=== PATIENT | male | born 1945 | race Caucasian/White ===

== ENCOUNTER → 2024-03-05 10:31 | Outpatient (REF) | payer MEDICARE, OTHER, SELFPAY ==
[2024-03-05 12:04] LABS: % Eosinophils 4.2 % (0-6); % Immature Granulocytes 0.3 % (0-0.5); % Lymphocytes 36.7 % (20.5-51.1); % Monocytes 10.4 % (1.7-9.3); % Neutrophils 48.4 % (42.2-75.2); Absolute Eosinophils 0.2 10^3/uL (0-0.7); Absolute Lymphocytes 1.3 10^3/uL (1.2-3.4); Absolute Monocytes 0.4 10^3/uL (0.1-0.6); Absolute Neutrophils 1.7 10^3/uL (1.4-6.5); Hematocrit 37.8 % (39.0-52.0); Hemoglobin 13.3 g/dL (13.0-18.0); Mean Corp Hgb Conc. 35.2 g/dL (33.0-37.0); Mean Corpuscular Hgb 32.6 pg (27.0-31.0); Mean Corpuscular Volume 92.6 fL (80.0-94.0); Mean Platelet Volume 12.1 fL (7.4-10.4); Nucleated Red Blood Cells % 0 % (-); Platelet Count 130 10^3/uL (130-400); Red Blood Cell Count 4.08 10^6/uL (4.70-6.10); Red Cell Dist. Width 12.5 % (11.5-14.5); White Blood Cell Count 3.6 10^3/uL (4.8-10.8)
[2024-03-05 13:36] LABS: ALT (SGPT) 19 U/L (0-50); AST (SGOT) 24 U/L (17-59); Albumin 4.2 g/dl (3.5-5.0); Alkaline Phosphatase 53 U/L (38-126); Blood Urea Nitrogen 15 mg/dl (9-20); Calcium 8.8 mg/dl (8.4-10.2); Carbon Dioxide 26 mmol/L (22-30); Chloride 104 mmol/L (98-107); Glucose 96 mg/dl (70-99); HDL Cholesterol 52 mg/dl; LDL Cholesterol, Calculated 112 mg/dl; Potassium 4.4 mmol/L (3.5-5.1); Sodium 134 mmol/L (135-145); Total Bilirubin 0.8 mg/dl (0.2-1.3); Total Cholesterol 179 mg/dl (50-199); Total Protein 6.6 g/dl (6.3-8.2); Triglyceride 75 mg/dl (10-149); Very Low Density Lipoprotein 15 mg/dl (0-30); eGFR > 60.00
[2024-03-05 13:55] LABS: Glycohemoglobin (HgbA1c) 5.2 % (4.0-5.6)
== END ==
LOC: REG 10:31
PROVIDERS: ATTENDING PHYSICIAN Family Medicine
DX: H40.023 Open angle with borderline findings, high risk, bilateral (principal); I10 Essential (primary) hypertension; E78.00 Pure hypercholesterolemia, unspecified; G47.30 Sleep apnea, unspecified; Z86.73 Personal history of transient ischemic attack (TIA), and cerebral infarction without residual deficits; M75.111 Incomplete rotator cuff tear or rupture of right shoulder, not specified as traumatic; E74.39 Other disorders of intestinal carbohydrate absorption; R73.09 Other abnormal glucose
CPT/HCPCS: 36415; 80053; 80061; 83036; 85025

== ENCOUNTER → 2024-04-08 11:18 | Outpatient (REF) | payer MEDICARE, OTHER, SELFPAY | LOC: HWRAD 11:18 | PROVIDERS: ATTENDING PHYSICIAN Family Medicine | DX: N50.89 Other specified disorders of the male genital organs (principal) | CPT/HCPCS: 76870; 93976 ==

== ENCOUNTER → 2024-09-05 11:09 | Outpatient (REF) | payer MEDICARE, OTHER, SELFPAY ==
[2024-09-05 12:38] LABS: Glycohemoglobin (HgbA1c) 4.9 % (4.0-5.6)
[2024-09-05 12:54] LABS: ALT (SGPT) 20 U/L (0-50); AST (SGOT) 26 U/L (17-59); Albumin 4.4 g/dl (3.5-5.0); Alkaline Phosphatase 49 U/L (38-126); Blood Urea Nitrogen 13 mg/dl (9-20); Calcium 8.8 mg/dl (8.4-10.2); Carbon Dioxide 22 mmol/L (22-30); Chloride 104 mmol/L (98-107); Glucose 98 mg/dl (70-99); HDL Cholesterol 47 mg/dl; LDL Cholesterol, Calculated 122 mg/dl; Potassium 4.3 mmol/L (3.5-5.1); Sodium 140 mmol/L (135-145); Total Cholesterol 187 mg/dl (50-199); Total Protein 6.7 g/dl (6.3-8.2); Triglyceride 93 mg/dl (10-149); Very Low Density Lipoprotein 18 mg/dl (0-30); eGFR > 60.00
[2024-09-05 13:00] LABS: % Basophils 0.3 % (0-2); % Eosinophils 2.1 % (0-6); % Immature Granulocytes 0.3 % (0-0.5); % Lymphocytes 44.5 % (20.5-51.1); % Monocytes 11.2 % (1.7-9.3); % Neutrophils 41.6 % (42.2-75.2); Absolute Eosinophils 0.1 10^3/uL (0-0.7); Absolute Lymphocytes 1.7 10^3/uL (1.2-3.4); Absolute Monocytes 0.4 10^3/uL (0.1-0.6); Absolute Neutrophils 1.6 10^3/uL (1.4-6.5); Hematocrit 37.8 % (39.0-52.0); Hemoglobin 13.3 g/dL (13.0-18.0); Mean Corp Hgb Conc. 35.2 g/dL (33.0-37.0); Mean Corpuscular Hgb 32.2 pg (27.0-31.0); Mean Corpuscular Volume 91.5 fL (80.0-94.0); Mean Platelet Volume 12.1 fL (7.4-10.4); Nucleated Red Blood Cells % 0 % (-); Platelet Count 127 10^3/uL (130-400); Red Blood Cell Count 4.13 10^6/uL (4.70-6.10); Red Cell Dist. Width 12.4 % (11.5-14.5); White Blood Cell Count 3.8 10^3/uL (4.8-10.8)
[2024-09-05 13:57] LABS: Microalbumin, Random Urine <0.6 mg/dl (0.6-1.7)
== END ==
LOC: REG 11:09
PROVIDERS: ATTENDING PHYSICIAN Family Medicine
DX: I10 Essential (primary) hypertension (principal); I63.9 Cerebral infarction, unspecified; E74.39 Other disorders of intestinal carbohydrate absorption; G62.9 Polyneuropathy, unspecified; E74.9 Disorder of carbohydrate metabolism, unspecified; R79.9 Abnormal finding of blood chemistry, unspecified
CPT/HCPCS: 36415; 80053; 80061; 82043; 82570; 83036; 85025

== ENCOUNTER → 2024-11-05 15:47 | Outpatient (REF) | payer MEDICARE, SELFPAY | LOC: RCS 15:47 | PROVIDERS: ATTENDING PHYSICIAN Nurse Practitioner; FAMILY PHYSICIAN Family Medicine | DX: I77.810 Thoracic aortic ectasia (principal); I34.0 Nonrheumatic mitral (valve) insufficiency | CPT/HCPCS: 93306 ==

== ENCOUNTER → 2025-03-25 10:17 | Outpatient (REF) | payer OTHER, MEDICARE, SELFPAY ==
[2025-03-25 11:26] LABS: % Eosinophils 3.3 % (0-6); % Lymphocytes 37.5 % (20.5-51.1); % Monocytes 10.5 % (1.7-9.3); % Neutrophils 48.5 % (42.2-75.2); Absolute Eosinophils 0.1 10^3/uL (0-0.7); Absolute Lymphocytes 1.4 10^3/uL (1.2-3.4); Absolute Monocytes 0.4 10^3/uL (0.1-0.6); Absolute Neutrophils 1.8 10^3/uL (1.4-6.5); Hematocrit 39.4 % (39.0-52.0); Hemoglobin 13.9 g/dL (13.0-18.0); Mean Corp Hgb Conc. 35.2 g/dL (33.0-37.0); Mean Corpuscular Hgb 32.9 pg (27.0-31.0); Mean Corpuscular Volume 93.4 fL (80.0-94.0); Mean Platelet Volume 11.5 fL (7.4-10.4); Nucleated Red Blood Cells % 0 % (-); Platelet Count 133 10^3/uL (130-400); Red Blood Cell Count 4.23 10^6/uL (4.70-6.10); Red Cell Dist. Width 12.5 % (11.5-14.5); White Blood Cell Count 3.7 10^3/uL (4.8-10.8)
[2025-03-25 11:34] LABS: Glycohemoglobin (HgbA1c) 5.1 % (4.0-5.6)
[2025-03-25 11:55] LABS: ALT (SGPT) 18 U/L (0-50); AST (SGOT) 21 U/L (17-59); Albumin 4.4 g/dl (3.5-5.0); Alkaline Phosphatase 51 U/L (38-126); Blood Urea Nitrogen 14 mg/dl (9-20); Calcium 8.9 mg/dl (8.4-10.2); Carbon Dioxide 27 mmol/L (22-30); Chloride 107 mmol/L (98-107); Glucose 100 mg/dl (70-99); HDL Cholesterol 47 mg/dl; LDL Cholesterol, Calculated 111 mg/dl; Potassium 4.3 mmol/L (3.5-5.1); Sodium 139 mmol/L (135-145); Total Bilirubin 1.1 mg/dl (0.2-1.3); Total Cholesterol 174 mg/dl (50-199); Total Protein 6.5 g/dl (6.3-8.2); Triglyceride 80 mg/dl (10-149); Very Low Density Lipoprotein 16 mg/dl (0-30); eGFR > 60.00
[2025-03-25 18:08] LABS: Microalbumin, Random Urine < 0.6 mg/dl (0.6-1.7)
== END ==
LOC: REG 10:17
PROVIDERS: ATTENDING PHYSICIAN Family Medicine
DX: I10 Essential (primary) hypertension (principal); E78.00 Pure hypercholesterolemia, unspecified; Z86.73 Personal history of transient ischemic attack (TIA), and cerebral infarction without residual deficits; E74.39 Other disorders of intestinal carbohydrate absorption; R79.9 Abnormal finding of blood chemistry, unspecified; R73.9 Hyperglycemia, unspecified
CPT/HCPCS: 36415; 80053; 80061; 82043; 83036; 85025

== ENCOUNTER → 2025-05-26 10:50 | Outpatient (REF) | payer MEDICARE, OTHER, SELFPAY ==
[2025-05-26 11:30] LABS: Hematocrit 38.2 % (39.0-52.0); Hemoglobin 13.6 g/dL (13.0-18.0); Mean Corp Hgb Conc. 35.6 g/dL (33.0-37.0); Mean Corpuscular Volume 92.5 fL (80.0-94.0); Nucleated Red Blood Cells % 0 % (-); Platelet Count 134 10^3/uL (130-400); Red Cell Dist. Width 12.1 % (11.5-14.5)
[2025-05-26 11:57] LABS: Iron 131 ug/dl (49-181)
[2025-05-26 12:07] LABS: Total Iron Binding Capacity 304 ug/dl (261-462)
[2025-05-26 12:44] LABS: Ferritin 45.2 ng/ml (17.9-464.0)
[2025-05-26 12:58] LABS: Vitamin B12 743 pg/ml (239-931)
== END ==
LOC: REG 10:50
PROVIDERS: ATTENDING PHYSICIAN Nurse Practitioner Family
DX: R42 Dizziness and giddiness (principal); G62.9 Polyneuropathy, unspecified; R79.89 Other specified abnormal findings of blood chemistry; D51.9 Vitamin B12 deficiency anemia, unspecified
CPT/HCPCS: 36415; 82607; 82728; 83540; 83550; 85025

== ENCOUNTER 2025-07-13 05:56 | Day surgery (SDC) | payer MEDICARE, OTHER, SELFPAY ==
[2025-07-13 10:15] VITALS: BP 139/65
[2025-07-13 10:20] VITALS: BMI 24.2
[2025-07-13 10:35] VITALS: BMI 24.2
[2025-07-13] MEDS: NORMOSOL-R/PLASMALYTE-A 1000 IV (10:54)
[2025-07-13 13:47] VITALS: BP 128/65
[2025-07-13 14:00] VITALS: BP 142/64
[2025-07-13 14:15] VITALS: BP 142/68
== END 2025-07-13 14:44 | disposition home or self-care (01) ==
LOC: SDS 05:56
PROVIDERS: ATTENDING PHYSICIAN Otolaryngology
DX: J33.9 Nasal polyp, unspecified (principal)
CPT/HCPCS: 31237; 88304

== ENCOUNTER 2025-09-02 10:08 | Inpatient (IN) | payer MEDICARE, OTHER, SELFPAY ==
--- NOTE | 2025-08-14 10:46 | CM ---
Demographics: confirmed
Living situation: Patient lives at [facility]
Support Person Post Operatively: friend will bring him back and forth, friend Nanette will stay with him.
History of
VN: NO
SNF: NO
Outpatient: Patient will not have rides.
Has patient purchased required equipment: yes, looking at [employer]
PCP: Active
Pharmacy: [facility]
Post Operative Discharge Plan: Patient will be [facility] with most likely [facility]. CM updated Orthopedic PA with CM concerns regarding patient's rides to outpatient PT.
--- NOTE | 2025-08-17 10:52 | VNURNOTE ---
Chart reviewed. Referral for [facility] entered and accepted in [facility].
[2025-08-20 13:40] VITALS: BMI 24.2
[2025-08-20 14:14] LABS: Hematocrit 35.4 % (39.0-52.0); Hemoglobin 12.1 g/dL (13.0-18.0); Mean Corp Hgb Conc. 34.2 g/dL (33.0-37.0); Mean Corpuscular Volume 92.9 fL (80.0-94.0); Platelet Count 134 10^3/uL (130-400); Red Cell Dist. Width 12.6 % (11.5-14.5)
[2025-08-20 14:34] LABS: ALT (SGPT) 18 U/L (0-50); AST (SGOT) 20 U/L (17-59); Albumin 4.0 g/dl (3.5-5.0); Alkaline Phosphatase 49 U/L (38-126); Blood Urea Nitrogen 17 mg/dl (9-20); Calcium 8.5 mg/dl (8.4-10.2); Carbon Dioxide 26 mmol/L (22-30); Chloride 104 mmol/L (98-107); Estimated Creatinine Clearance 97 ml/min; Glucose 160 mg/dl (70-99); Potassium 4.2 mmol/L (3.5-5.1); Sodium 135 mmol/L (135-145); Total Protein 6.3 g/dl (6.3-8.2); eGFR > 60.00
[2025-08-20 17:17] VITALS: BMI 24.2
[2025-08-21 10:31] LABS: Glycohemoglobin (HgbA1c) 4.8 % (4.0-5.9)
[2025-09-02] VITALS (12 sets, daily range): BP systolic 111–163; BP diastolic 59–79; BMI 24.2
--- NOTE | 2025-09-02 07:50 | W.PN.UPDATE ---
Update Note
Progress Note Update
R knee OA s/p R TKA w/ Dr Baker 09/02/25
DVT prophylaxis - ASA, b/l venous foot pumps
HTN - + parameters - monitor BP
JUANJO, improved with weight loss - monitor O2
- IS
- Add supplemental O2 HS
- Consider steroid to aid in lung perfusion
NIDDM, diet controlled, A1c 4.8 - monitor BS
- Add SSI AC, low dose Lantus HS during admission to accommodate for potential post-surgical BS elevations
- Diabetic carb controlled diet
- Would benefit from Cefadroxil upon d/c
CVA x2, last 2021, with transient right upper extremity weakness - continue ASA but at 325 mg dosing x4 weeks for blood clot prevention
Balance difficulties - on fall precautions
Peripheral neuropathy - add Gabapentin HS
Mild anemia - H&H in AM
- Previous anemia panel WNL. Will repeat in AM and supplement if needed
Hypercholesterolemia
Aortic atherosclerosis
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
PFO
Colon polyps
Hepatitis B 1971
Vertigo
Ocular migraines
Multilevel degenerative disc disease
Mild scoliosis
Prostate cancer, 2009, status post radical prostatectomy
Basal cell carcinoma, status post Mohs
Recurrent nasal polyps
Glaucoma
Bilateral retinal detachment, status post multiple surgical repairs
Anxiety
Chronic, mild leukopenia
Remote history of tobacco abuse
[2025-09-02] MEDS: CELEBREX 200 MG PO (10:34)
[2025-09-02] MEDS: TYLENOL 650 MG PO ×2 (10:34→17:12)
[2025-09-02] MEDS: NORMOSOL-R/PLASMALYTE-A 1000 IV ×2 (10:34→15:38)
[2025-09-02] MEDS: ROXICODONE 5 MG PO ×2 (14:29→17:13)
--- NOTE | 2025-09-02 15:57 | PTCARENOTE ---
Pt arrived to 2S in bed. Full assessment completed. Pt drowsy and stating he is too tired to eat or participate with PT/OT, requesting ' not to be bothered'. R knee DSG C/D/I. B/L LEs with decreased sensation, pt with neuropathy at baseline. Pt with
fair movement, neurovascular assessment otherwise WDL. IVF infusing per order. Bed locked and in the lowest position, safety maintained. Oriented to room and call hall.
[2025-09-02 16:14] LABS: Glucose - Point of Care 115 mg/dl (70-99)
[2025-09-02] MEDS: NOVOLOG FLEXPEN-MODERATE RESISTANCE SC (17:06)
[2025-09-02] MEDS: COZAAR 50 MG PO (17:12)
[2025-09-02] MEDS: VITAMIN B-12 1000 MCG PO (17:12)
[2025-09-02] MEDS: ASPIRIN 325 MG PO (17:12)
[2025-09-02] MEDS: VITAMIN D3 (cholecalciferol) 25 MCG PO (17:13)
[2025-09-02] MEDS: ZETIA 10 MG PO (17:13)
[2025-09-02] MEDS: ANCEF 5 IV (21:20)
[2025-09-02] MEDS: BACTROBAN 2% OINTMENT 1 APPLIC NASAL (21:20)
[2025-09-02] MEDS: FLORASTOR 250 MG PO (21:21)
[2025-09-02] MEDS: TYLENOL PO (21:21)
[2025-09-02] MEDS: SENOKOT 17.2 MG PO (21:21)
[2025-09-02] MEDS: NEURONTIN 300 MG PO (21:21)
[2025-09-02] MEDS: COLACE 100 MG PO (21:21)
[2025-09-02] MEDS: PEPCID 20 MG PO (21:22)
[2025-09-02] MEDS: TORADOL 10 MG IV (21:22)
[2025-09-02] MEDS: LOPRESSOR 25 MG PO (21:26)
[2025-09-02] MEDS: CARDURA 1 MG PO (21:30)
[2025-09-02] MEDS: XALATAN OPHTHALMIC SOLUTION 1 DROP BOTH EYES (21:31)
[2025-09-02 21:43] LABS: Glucose - Point of Care 165 mg/dl (70-99)
[2025-09-02] MEDS: TRUSOPT 2% OPHTHALMIC SOLUTION 1 DROP BOTH EYES (23:32)
[2025-09-03] VITALS (7 sets, daily range): BP systolic 118–141; BP diastolic 54–65; PULSE 59–66
[2025-09-03] MEDS: TYLENOL PO ×2 (00:57→04:50)
[2025-09-03] MEDS: ANCEF 5 IV (04:50)
[2025-09-03] MEDS: ROXICODONE 5 MG PO (04:58)
[2025-09-03 06:45] LABS: Hematocrit 26.0 % (39.0-52.0); Hemoglobin 9.3 g/dL (13.0-18.0)
[2025-09-03 07:13] LABS: Iron 57 ug/dl (49-181)
[2025-09-03 07:23] LABS: Total Iron Binding Capacity 303 ug/dl (261-462)
[2025-09-03 07:45] LABS: Ferritin 20.7 ng/ml (17.9-464.0)
[2025-09-03 07:48] LABS: Glucose - Point of Care 136 mg/dl (70-99)
[2025-09-03] MEDS: NOVOLOG FLEXPEN-MODERATE RESISTANCE SC ×2 (07:49→13:00)
[2025-09-03] MEDS: COZAAR PO (07:50)
[2025-09-03] MEDS: FLORASTOR 250 MG PO ×2 (07:51→21:09)
[2025-09-03] MEDS: ASPIRIN 325 MG PO (07:51)
[2025-09-03] MEDS: COLACE 100 MG PO ×2 (07:51→21:07)
[2025-09-03] MEDS: TYLENOL 650 MG PO ×4 (07:51→21:00)
[2025-09-03] MEDS: VITAMIN D3 (cholecalciferol) 25 MCG PO (07:52)
[2025-09-03] MEDS: VITAMIN C 1000 MG PO (07:52)
[2025-09-03] MEDS: CELEBREX 200 MG PO (07:52)
[2025-09-03] MEDS: SENOKOT 17.2 MG PO ×2 (07:52→21:08)
[2025-09-03] MEDS: BACTROBAN 2% OINTMENT 1 APPLIC NASAL ×2 (07:52→21:09)
[2025-09-03] MEDS: TRUSOPT 2% OPHTHALMIC SOLUTION 1 DROP BOTH EYES ×3 (07:53→21:12)
[2025-09-03] MEDS: LOPRESSOR PO (07:58)
[2025-09-03 08:16] LABS: Folate 17.1 ng/ml (2.76-20); Vitamin B12 908 pg/ml (239-931)
[2025-09-03] MEDS: LIDOCAINE 4% PATCH 2 PATCH TOPICAL (08:44)
[2025-09-03] MEDS: NSS 250 IV (08:45)
--- NOTE | 2025-09-03 09:04 | PTCARENOTE ---
Pt c/o feeling lightheaded/ dizzy with positional change. Pt also c/o 'severe pain' this am. Frank Barrera PA-c made aware, bolus ordered and initiated, lidocaine patches provided. Care remains ongoing.
--- NOTE | 2025-09-03 09:38 | W.PN.ORTHO ---
Today's Communication / Plan
-
Monitor dizziness and lightheadedness.
Work w/ PT and OT as able.
D/c possible for later today pending clinical stability. Will need home PT/VN upon d/c.
Assessment
.
Distal Motor Intact: Yes
Dressing:
2 small areas of old incisional bleeding towards inferior end of dressing.
Assessment:
R knee OA s/p R TKA w/ Dr Baker 09/02/25
DVT prophylaxis - ASA, b/l venous foot pumps
Lightheadedness/dizziness this AM - worse w/ positional changes
- ? if med induced. Did receive Oxy this AM. Will d/c in favor of more milder Tramadol.
- Will also d/c Gabapentin HS which could be contributing
- Give IVF bolus. Hold Lopressor for now
- Is prone to vertigo. Will order Meclizine as needed
- Monitor. Work w/ PT and OT once sx improved
HTN - + parameters - BPs overall stable
JUANJO, improved with weight loss - O2 stable on RA w/ measures below
- IS
- Added supplemental O2 HS
- Consider steroid to aid in lung perfusion
NIDDM, diet controlled, A1c 4.8 - BS readings stable w/ measures below
- Add SSI AC, low dose Lantus HS during admission to accommodate for potential post-surgical BS elevations. Pt reportedly refused Lantus last night however
- Diabetic carb controlled diet
- Would benefit from Cefadroxil upon d/c
CVA x2, last 2021, with transient right upper extremity weakness - continue ASA but at 325 mg dosing x4 weeks for blood clot prevention
Balance difficulties - on fall precautions
Peripheral neuropathy - added Gabapentin HS initially but will d/c d/t reasons above
Mild anemia - H&H 12.1 pre-op -> 9.3 post-op
- Result could actually be higher. Result likely hemodiluted by IVF overnight
- Repeat anemia panel WNL
- Hold transfusion unless hgb low 7s of less, hemodynamically unstable
Hypercholesterolemia
Aortic atherosclerosis
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
PFO
Colon polyps
Hepatitis B 1971
Vertigo
Ocular migraines
Multilevel degenerative disc disease
Mild scoliosis
Prostate cancer, 2009, status post radical prostatectomy
Basal cell carcinoma, status post Mohs
Recurrent nasal polyps
Glaucoma
Bilateral retinal detachment, status post multiple surgical repairs
Anxiety
Chronic, mild leukopenia
Remote history of tobacco abuse
Plan
.
Surgery / Date: R TKA w/ Dr Baker 09/02/25
DVT Prophylaxis: Aspirin
Activity:
Out of bed.
PT/OT
Discharge Plan: Home w/ VN
Subjective
.
.:
Patient examined resting in bed.
Reporting high levels of pain, starting at right knee and 'shooting down leg'; appears completely comfortable however.
Reported dizziness/lightheadedness early this AM - possibly medication induced.
Vital Signs and Labs
.
Vital Signs and Labs:
Lab Results
09/03/25 06:21
08/20/25 13:29
Temp Pulse Resp BP Pulse Ox
98.3 F 56 16 126/65 95
09/03/25 08:10 09/03/25 08:10 09/03/25 08:10 09/03/25 08:10 09/03/25 08:10
Physical Exam
-
HEENT: No pallor, cyanosis, or jaundice. Throat clear. Heavily bearded.
NECK: Supple. No JVD.
RESPIRATORY: Lungs clear to auscultation.
CVS: S1, S2 normal. RRR.�
ABDOMEN: Soft, non-tender. No distension.
EXTREMITIES: Expected post-surgical R knee edema. Strength equal, no calf pain with palpation/dorsiflexion. Calves soft.
BOX ESTIMATOR: AOx3. No focal deficits. care program resident grossly intact
--- NOTE | 2025-09-03 10:25 | CM ---
Addendum entered by Apoorva Hedrick RN 09/04/25 12:58:
Patient accepted to [facility]
PLAN: [facility] for 09/05
[phone]

Addendum entered by Apoorva Hedrick RN 09/04/25 11:58:
[facility] cannot accept. Pending acceptance at [facility].
Addendum entered by Apoorva Hedrick RN 09/03/25 16:11:
[facility] is considering pending bed availability. CM will be updated tomorrow AM.
Addendum entered by Apoorva Hedrick RN 09/03/25 12:23:
Patient has been recommended for SNF. CM sent referrals to [facility], [facility] and [facility]. Patient stated his preference is [facility]. CM updated Selin at [facility] with new referral.
Original Note:
Cm met with patient in room. Confirmed patient is for VN with [facility]. CM updated [facility] Admission RN with likely discharge today.
PLAN: Home with [facility]
[2025-09-03 11:37] LABS: Glucose - Point of Care 141 mg/dl (70-99)
[2025-09-03 16:29] LABS: Glucose - Point of Care 153 mg/dl (70-99)
[2025-09-03] MEDS: ZETIA 10 MG PO (18:22)
[2025-09-03] MEDS: NOVOLOG FLEXPEN-MODERATE RESISTANCE 1 UNITS SC (18:23)
[2025-09-03] MEDS: PEPCID 20 MG PO (21:08)
[2025-09-03] MEDS: LOPRESSOR 25 MG PO (21:08)
[2025-09-03] MEDS: CARDURA 1 MG PO (21:10)
[2025-09-03 21:37] LABS: Glucose - Point of Care 119 mg/dl (70-99)
[2025-09-03] MEDS: XALATAN OPHTHALMIC SOLUTION 1 DROP BOTH EYES (23:06)
[2025-09-04] MEDS: TYLENOL PO ×2 (01:00→05:00)
[2025-09-04 07:06] VITALS: BP 146/73
[2025-09-04 07:25] LABS: Glucose - Point of Care 109 mg/dl (70-99)
[2025-09-04] MEDS: NOVOLOG FLEXPEN-MODERATE RESISTANCE SC ×3 (08:00→16:31)
--- NOTE | 2025-09-04 08:49 | W.PN.ORTHO ---
Today's Communication / Plan
-
Work w/ PT and OT as able.
D/c to SNF when clinically stable.
Assessment
.
Distal Motor Intact: Yes
Dressing:
3 small areas of old incisional bleeding towards inferior end of dressing.
Assessment:
R knee OA s/p R TKA w/ Dr Baker 09/02/25
DVT prophylaxis - ASA, b/l venous foot pumps
Lightheadedness/dizziness POD 1 - worse w/ positional changes
- ? if med induced 2* Oxycodone. Will d/c in favor of more milder Tramadol
- Did also d/c Gabapentin HS which could be contributing
- S/p IVF bolus. Lopressor held POD 1 AM
- Is prone to vertigo. Will order Meclizine as needed
- Resolved by POD 1 w/ measures above
HTN - + parameters - BPs overall stable
JUANJO, improved with weight loss - O2 stable on RA w/ measures below
- IS
- Added supplemental O2 HS
- Consider steroid to aid in lung perfusion
NIDDM, diet controlled, A1c 4.8 - BS readings stable w/ measures below
- Add SSI AC during admission to accommodate for potential post-surgical BS elevations. Pt reportedly refused previously prescribed Lantus. This was ultimately d/c
- Diabetic carb controlled diet
- Would benefit from Cefadroxil upon d/c
CVA x2, last 2021, with transient right upper extremity weakness - continue ASA but at 325 mg dosing x4 weeks for blood clot prevention
Balance difficulties - on fall precautions
Peripheral neuropathy - added Gabapentin HS initially but did d/c d/t reasons above
Mild anemia - H&H 12.1 pre-op -> 9.3 post-op
- Result could actually be higher. Result likely hemodiluted by IVF
- Repeat anemia panel WNL
- Hold transfusion unless hgb low 7s of less, hemodynamically unstable
Hypercholesterolemia
Aortic atherosclerosis
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
PFO
Colon polyps
Hepatitis B 1971
Vertigo
Ocular migraines
Multilevel degenerative disc disease
Mild scoliosis
Prostate cancer, 2008, status post radical prostatectomy
Basal cell carcinoma, status post Mohs
Recurrent nasal polyps
Glaucoma
Bilateral retinal detachment, status post multiple surgical repairs
Anxiety
Chronic, mild leukopenia
Remote history of tobacco abuse
Plan
.
Surgery / Date: R TKA w/ Dr Baker 09/02/25
DVT Prophylaxis: Aspirin
Activity:
Out of bed.
PT/OT
Discharge Plan: SNF
Subjective
.
.:
Patient resting comfortably in bed.
Reports R knee pain bearable w/ minimal pain meds yesterday.
Lightheadedness/dizziness improved overall.
Denies any other new significant complaints.
Vital Signs and Labs
.
Vital Signs and Labs:
Lab Results
09/03/25 06:21
08/20/25 13:29
Temp Pulse Resp BP Pulse Ox
98.2 F 62 16 146/73 94
09/04/25 07:06 09/04/25 07:06 09/04/25 07:06 09/04/25 07:06 09/04/25 07:06
Non-invasive Hgb result: 11.5
Physical Exam
-
HEENT: No pallor, cyanosis, or jaundice. Throat clear.
NECK: Supple. No JVD.
RESPIRATORY: Lungs clear to auscultation.
CVS: S1, S2 normal. RRR.�
ABDOMEN: Soft, non-tender. No distension.
EXTREMITIES: Expected post-surgical R knee edema. Strength equal, no calf pain with palpation/dorsiflexion. Calves soft.
SKI PATROLLER: AOx3. No focal deficits. complaint coordinator grossly intact
[2025-09-04] MEDS: TRUSOPT 2% OPHTHALMIC SOLUTION 1 DROP BOTH EYES ×3 (08:58→21:13)
[2025-09-04] MEDS: TYLENOL 650 MG PO ×4 (08:58→21:02)
[2025-09-04] MEDS: SENOKOT 17.2 MG PO (08:58)
[2025-09-04] MEDS: COLACE 100 MG PO (08:58)
[2025-09-04] MEDS: ASPIRIN 325 MG PO (08:58)
[2025-09-04] MEDS: VITAMIN C 1000 MG PO (08:58)
[2025-09-04] MEDS: LOPRESSOR 25 MG PO ×2 (08:59→21:03)
[2025-09-04] MEDS: FLORASTOR 250 MG PO ×2 (08:59→21:03)
[2025-09-04] MEDS: LIDOCAINE 4% PATCH 2 PATCH TOPICAL (08:59)
[2025-09-04] MEDS: VITAMIN D3 (cholecalciferol) 25 MCG PO (09:00)
[2025-09-04] MEDS: CELEBREX 200 MG PO (09:00)
[2025-09-04] MEDS: COZAAR PO (09:00)
[2025-09-04] MEDS: KEFLEX 500 MG PO ×2 (09:12→21:02)
[2025-09-04 11:53] VITALS: BP 124/63; PULSE 55
[2025-09-04 11:53] LABS: Glucose - Point of Care 101 mg/dl (70-99)
[2025-09-04 15:00] VITALS: BP 117/46
[2025-09-04 16:22] LABS: Glucose - Point of Care 117 mg/dl (70-99)
[2025-09-04] MEDS: VITAMIN B-12 1000 MCG PO (16:37)
[2025-09-04] MEDS: ZETIA 10 MG PO (18:27)
[2025-09-04] MEDS: COLACE PO (20:58)
[2025-09-04] MEDS: SENOKOT PO (20:58)
[2025-09-04] MEDS: PEPCID 20 MG PO (21:03)
[2025-09-04] MEDS: XALATAN OPHTHALMIC SOLUTION 1 DROP BOTH EYES (21:13)
[2025-09-04] MEDS: CARDURA 1 MG PO (21:15)
[2025-09-04 21:43] LABS: Glucose - Point of Care 122 mg/dl (70-99)
--- NOTE | 2025-09-04 22:36 | PTCARENOTE ---
2 lidocaine patches removed from knee per order at 2100.
[2025-09-04 23:00] VITALS: BP 119/44
[2025-09-05] MEDS: TYLENOL PO ×2 (01:05→05:00)
[2025-09-05 07:00] VITALS: BP 137/61
[2025-09-05 08:25] LABS: Glucose - Point of Care 110 mg/dl (70-99)
[2025-09-05] MEDS: NOVOLOG FLEXPEN-MODERATE RESISTANCE SC ×3 (08:46→17:21)
[2025-09-05] MEDS: LIDOCAINE 4% PATCH 2 PATCH TOPICAL (08:47)
[2025-09-05] MEDS: TYLENOL 650 MG PO ×3 (08:47→16:14)
[2025-09-05] MEDS: TRUSOPT 2% OPHTHALMIC SOLUTION 1 DROP BOTH EYES ×2 (08:47→16:13)
[2025-09-05] MEDS: VITAMIN D3 (cholecalciferol) 25 MCG PO (08:48)
[2025-09-05] MEDS: VITAMIN C 1000 MG PO (08:48)
[2025-09-05] MEDS: ASPIRIN 325 MG PO (08:48)
[2025-09-05] MEDS: COZAAR PO (08:48)
[2025-09-05] MEDS: KEFLEX 500 MG PO (08:48)
[2025-09-05] MEDS: CELEBREX 200 MG PO (08:48)
[2025-09-05] MEDS: LOPRESSOR 25 MG PO (08:49)
[2025-09-05] MEDS: SENOKOT PO (08:49)
[2025-09-05] MEDS: COLACE PO (08:49)
[2025-09-05] MEDS: FLORASTOR 250 MG PO (08:49)
--- NOTE | 2025-09-05 10:18 | W.PN.ORTHO ---
Today's Communication / Plan
-
POD #3 s/p right TKA.
-PT/OT to tolerance.
-WBAT with walker.
-Pain control with oxy/tylenol prn.
-Aspirin 325 mg po daily for DVT prophylaxis.
-Stable for d/c to [facility] today.
Assessment
.
Distal Motor Intact: Yes
Dressing:
Clean, dry and intact.
Assessment:
POD #3 s/p right TKA.
-PT/OT to tolerance.
-WBAT with walker.
-Pain control with oxy/tylenol prn.
-Aspirin 325 mg po daily for DVT prophylaxis.
-Stable for d/c to [facility] today.
Plan
.
Surgery / Date: R TKA w/ Dr Baker 09/02/25
DVT Prophylaxis: Aspirin
Activity:
Out of bed.
PT/OT
Discharge Plan: SNF
Subjective
.
.:
Patient resting comfortably in bedside chair. Having a stabbing pain about anterior knee that is intermittent, but otherwise doing well.
Vital Signs and Labs
.
Vital Signs and Labs:
Lab Results
09/03/25 06:21
08/20/25 13:29
Temp Pulse Resp BP Pulse Ox
98.2 F 65 16 137/61 92
09/05/25 07:00 09/05/25 08:49 09/05/25 07:00 09/05/25 08:49 09/05/25 07:00
Non-invasive Hgb result: 10.4
Physical Exam
-
Right knee: Dressing is c/d/i, mild stable drainage at distal dressing. Swelling within post op expectations. ROM 0-110 degrees. Calf soft and non tender to palpation. N/v intact distally.
--- NOTE | 2025-09-05 10:21 | W.DS.TRANS ---
DC Summary - Dental Resident
-
Discharge Instructions:
Sleep Apnea Risk Intermediate
Discharge Diagnosis/Procedures R knee OA s/p R TKA w/ Dr Baker 09/02/25
Diet Diabetic, Carb Controlled
Additional Diets Adequate hydration, minimize opioids, and wear
TEDs stockings to prevent low blood pressure/
dizziness.
Activity As tolerated,With Walker
Driving Restrictions Not until seen by your Dr
Bathing Restrictions OK to Shower
Other Services PT,OT
Wound Care Dressing to be removed 1 week post-surgery.
Instructions:
Stand-Alone Forms: Total Hip/Knee Replacement D/C
Changes to Home Medications: No
Discharge Medications:
DC Medications w/original date entered in [employer]
B-complex with vitamin C 1 cap PO Q48H Supplement 10/29/21
cholecalciferol (vitamin D3) 25 mcg (1,000 unit) tablet 1,000 units PO DAILY Supplement 10/29/21
flaxseed oil 1,000 mg capsule 1,000 mg PO QPM Supplement 10/29/21
Held on 09/03/25. Instructions: Resume on 09/09/25.
cyanocobalamin (vitamin B-12) 1,000 mcg tablet (Vitamin B-12) 1,000 mcg PO Q48H 07/07/25
dorzolamide (PF) 2 % (PF) eye drops 1 drp BOTH EYES TID 07/07/25
ezetimibe 10 mg tablet 10 mg PO QPM 07/07/25
latanoprost (PF) 0.005 % eye drops in a dropperette 1 drp BOTH EYES HS 07/07/25
magnesium 425 mg PO DAILY 07/07/25
montelukast 10 mg tablet (Singulair) 10 mg PO QPM 07/07/25
cfudlrnb-aa-osnde 300 mcg-K 60 mcg-lycop 600 mcg-lutein 300 mcg tablet (Centrum Silver Men) 1 tab PO DAILY 07/07/25
nebivolol 5 mg tablet 5 mg PO HS 07/07/25
Beulah Turmeric 1 dose PO DAILY 08/18/25
Held on 09/03/25. Instructions: Resume on 09/09/25.
apple cider vinegar 1 tsp PO QPM 08/18/25
Held on 09/03/25. Instructions: Resume on 09/09/25.
ascorbic acid (vitamin C) 1,000 mg tablet (Vitamin C) 1,000 mg PO DAILY 08/18/25
cefadroxil 500 mg capsule 500 mg PO BID #14 caps 08/25/25
celecoxib 200 mg capsule (Celebrex) 200 mg PO DAILY #14 caps 08/25/25
famotidine 20 mg tablet (Pepcid) 20 mg PO HS #30 tabs 08/25/25
ondansetron HCl 4 mg tablet 4 mg PO Q6H PRN nausea and vomiting #30 tabs 08/25/25
Saccharomyces boulardii 250 mg capsule (Florastor) 250 mg PO BID #14 caps 09/03/25
acetaminophen 650 mg tablet,extended release (Tylenol Arthritis Pain) 1,300 mg (2 x 650 mg) PO Q8H #60 tabs 09/03/25
aspirin 325 mg tablet 325 mg PO DAILY #30 tabs 09/03/25
docusate sodium 100 mg capsule 100 mg PO BID #30 caps 09/03/25
doxazosin 1 mg tablet 1 mg PO HS Blood pressure #1 tab 09/03/25
lidocaine 4 % topical patch 2 patch topical DAILY #30 ea 09/03/25
losartan 50 mg tablet 50 mg PO DAILY Blood pressure #1 tab 09/03/25
polyethylene glycol 3350 17 gram oral powder packet (Miralax) 17 g PO DAILY PRN Constipation #14 ea 09/03/25
sennosides 8.6 mg tablet (Laurence-rosalba) 17.2 mg (2 x 8.6 mg) PO BID #30 tabs 09/03/25
tramadol 50 mg tablet 50 - 100 mg (1 - 2 x 50 mg) PO Q6H PRN moderate-severe pain #30 tabs 09/03/25
Home Medication Changes
Pending Results: No
[2025-09-05 12:16] LABS: Glucose - Point of Care 112 mg/dl (70-99)
[2025-09-05] MEDS: FLUZONE HIGH-DOSE 2025-26 0.5 ML IM (12:36)
[2025-09-05 13:59] VITALS: BP 149/62
[2025-09-05] MEDS: MAALOX 30 ML PO (14:18)
[2025-09-05 15:05] VITALS: BP 148/66
--- NOTE | 2025-09-05 15:55 | PTCARENOTE ---
@1400-pt c/o 'slight ' chest discomfort. pt was supine in bed. VS: 98.2-66-16-149/62, pox 96 on RA. pt did have tomato soup and sandwich for lunch. pt assisted out of bed to the chair, given Maalox per DEC. TOD Botello made aware. @1450,
pt called to say that he had belched a few times and the chest discomfort had resolved. ortho PA updated. care ongoing.
--- NOTE | 2025-09-05 16:06 | PTCARENOTE ---
attempted to call report to [facility]-unable to speak to nursing boiler shop supervisor-no answer. left message with owner/operator-left call back # for report. scheduled hand picker at 1630. information faxed per protocol.
[2025-09-05 17:13] LABS: Glucose - Point of Care 116 mg/dl (70-99)
== END 2025-09-05 17:50 | DRG 470 ==
LOC: 2 SOUTH 10:08
PROVIDERS: Physician Assistant; ADMITTING PHYSICIAN Orthopaedic Surgery; FAMILY PHYSICIAN Family Medicine; REFERRING PHYSICIAN Internal Medicine Cardiovascular Disease
PROC: 0SRC0J9 Replacement of Right Knee Joint with Synthetic Substitute, Cemented, Open Approach (ICD-10-PCS; 2025-09-02)
DX: M17.11 Unilateral primary osteoarthritis, right knee (principal); Q21.12 Patent foramen ovale; B19.10 Unspecified viral hepatitis B without hepatic coma; D62 Acute posthemorrhagic anemia; D72.819 Decreased white blood cell count, unspecified; E11.40 Type 2 diabetes mellitus with diabetic neuropathy, unspecified; E78.00 Pure hypercholesterolemia, unspecified; F41.9 Anxiety disorder, unspecified; G47.33 Obstructive sleep apnea (adult) (pediatric); I10 Essential (primary) hypertension; I70.0 Atherosclerosis of aorta; H40.9 Unspecified glaucoma; Z59.82 Transportation insecurity; Z79.82 Long term (current) use of aspirin; Z79.899 Other long term (current) drug therapy; Z86.73 Personal history of transient ischemic attack (TIA), and cerebral infarction without residual deficits; Z87.891 Personal history of nicotine dependence; Z90.79 Acquired absence of other genital organ(s)
CPT/HCPCS: 36415; 73560; 80053; 82607; 82728; 82746; 82962; 83036; 83540; 83550; 85014; 85018; 85027; 87070; 97110; 97116; 97162; 97167; 97530; 97535; C1713; C1776

== ENCOUNTER 2025-09-07 13:10 | Emergency (ER) | payer MEDICARE, OTHER, SELFPAY ==
[2025-09-07 13:12] VITALS: BP 155/69
--- NOTE | 2025-09-07 13:36 | ED.GENMED ---
Addendum entered and electronically signed by Charu Baltazar MD, Resident 09/08/25 14:01:
No growth on urine culture.
Original Note:
History of Present Illness
<Aden Plaza, DO - Last Filed: 09/07/25 13:37>
General
Chief Complaint: Wound Check/Suture Removal
Time Seen by Provider: 09/07/25 13:18
<Charu Baltazar MD, Resident - Last Filed: 09/07/25 14:04>
General
Source: patient
History of Present Illness
History of Present Illness:
80-year-old male with past medical history of hypertension, CVA, diabetes, JUANJO with recent total knee arthroplasty on 09/03/[address] Baker presents to the ED for new bandage. He took his first shower yesterday since the operation and noticed
the distal end of the bandage was loose. There was an bleeding from the wound site and he took off the bandage today. He tried to call the orthopedic office for instructions and what to do however did not get a response. The pain from the
operation has been well-controlled with Tylenol. He has not noticed any significant redness or swelling of the knee, fevers or chills. He called his PCP and they recommended for him to come to the ER for new bandage.
He also complains of increased urinary frequency. He has been drinking an increased amount of water since the surgery but is still concerned he may have a UTI.
Past History
<Aden Plaza, DO - Last Filed: 09/07/25 13:37>
Past History
ED Past Medical History: Cancer (Nasal cell), CVA (2019), Other (Detach retina), Other (possible Marfans) and Other ( hypertension, hyperlipidemia, obstructive sleep apnea, ischemic stroke 2019, patent foramen ovale with atrial septal aneurysm,
aortic atherosclerosis, migraines, prostate cancer status post prostatectomy); Negative IDDM, NIDDM, [place] or Renal failure
ED Past Surgical History: Other (Eye surgery x 5 left eye)
Social History
Tobacco: Non-smoker
Alcohol: None
Drug: None
Living: with family
Employment: Employed
Family History
Family History: Hypertension
Review of Systems
<Charu Baltazar MD, Resident - Last Filed: 09/07/25 14:04>
Review of Systems
Allergies reviewed?: Yes
Constitutional: Reports no symptoms
EENT: Reports no symptoms
Respiratory: Reports no symptoms
Cardiac: Reports no symptoms
ABD/GI: Reports no symptoms
: Reports frequency and dark urine
Musculoskeletal: Reports no symptoms
Skin: Reports no symptoms
Neurological: Reports no symptoms
Phy Exam
<Charu Baltazar MD, Resident - Last Filed: 09/07/25 14:04>
Physical Exam
Physical Exam:
General: Well-appearing
Head: Atraumatic
Cardiac: Regular S1-S2
Respiratory: Clear breath sounds bilaterally
Extremities: Right knee status post total knee arthroplasty with midline incision healing well. Diffuse ecchymosis postop. Superficial skin abrasion noted on chest over patella about 3 cm in diameter. No purulence, foul smell, warmth or
significant swelling of joint site.
General Physical Exam
General Presentation: well appearing
General age: appears stated age
General Skin: warm and dry
General Habitus: normal
General Mental: alert
Course
<Aden Plaza, DO - Last Filed: 09/07/25 13:37>
Vital Signs
Initial and Last Documented VS:
Initial Vital Signs
Temp Pulse Resp BP Pulse Ox
97.7 F 80 16 155/69 95
09/07/25 13:12 09/07/25 13:12 09/07/25 13:12 09/07/25 13:12 09/07/25 13:12
Last Documented Vital Signs
Temp Pulse Resp BP Pulse Ox
97.7 F 80 16 155/69 95
09/07/25 13:12 09/07/25 13:12 09/07/25 13:12 09/07/25 13:12 09/07/25 13:37
<Charu Baltazar MD, Resident - Last Filed: 09/07/25 14:04>
Vital Signs
Initial and Last Documented VS:
Initial Vital Signs
Temp Pulse Resp BP Pulse Ox
97.7 F 80 16 155/69 95
09/07/25 13:12 09/07/25 13:12 09/07/25 13:12 09/07/25 13:12 09/07/25 13:12
Last Documented Vital Signs
Temp Pulse Resp BP Pulse Ox
97.7 F 80 16 155/69 95
09/07/25 13:12 09/07/25 13:12 09/07/25 13:12 09/07/25 13:12 09/07/25 13:37
<Charu Baltazar MD, Resident - Last Filed: 09/07/25 14:04>
MDM/Problems Addressed
MDM/Problems Addressed:
Dr. Baker was notified. Knee was irrigated with normal saline and Primasel postop dressing was placed. No signs of infection. Pain well controlled with tylenol. UA was sent for urinary frequency. If urine grows something in its culture, will call
an antibiotic in for the patient tomorrow.
Chronic conditions affecting care: DM
<Aden Plaza DO - Last Filed: 09/07/25 13:37>
*Pulse Oximetry
SaO2: 95
Oxygen Mode of Delivery: Room air
<Charu Baltazar MD, Resident - Last Filed: 09/07/25 14:04>
*Pulse Oximetry
Patient hypoxic: no
*Critical Care Note
Total Time (30-74mins, 75-104mins- exclusive of procedures): Not Applicable
Data Reviewed
Review of Other/Old Records Reveals: Labs (hg 9.3 on 09/03/25) and Radiology Studies (Knee x-ray 09/02/25 post R knee arthroplasty with satisfactory post-operative appearance. )
Source: patient
ED Attending Note
<Aden Plaza, - Last Filed: 09/07/25 13:37>
ED Attending Note
Patient seen and examined by attending physician: Yes
I performed a history and physical exam of patient and discussed management with resident, I reviewed resident's note and agree with documented findings and plan of care.: Yes
ED Attending Note:
I evaluated the patient at bedside. The patient has extensive ecchymosis to the mid and proximal right lower extremity. No clear evidence for cellulitic changes. He primarily came in here due to concerns of the dressing and he could not get a
hold of his orthopedist. We placed a new PrimaSeal dressing after cleaning the area. Resident discussed with Dr. Mast.
-
Portions of this chart may have been created with voice recognition software.� Occasional wrong word or��sound alike� substitutions may have occurred due to the inherent limitations of voice recognition software.
Discharge Plan
Departure
Patient Disposition: Home (Routine Discharge)
Date of Disposition: 09/07/25
Time of Disposition: 13:44
Patient with high blood pressure during this ER visit?: Yes
Discharge Problem:
History of total knee arthroplasty, Wound disruption, post-op, skin
Prescriptions:
No Action
flaxseed oil 1,000 MG capsule
1,000 mg PO QPM
B-complex with vitamin C 1 CAPLET tablet
1 cap PO Q48H
cholecalciferol (vitamin D3) 1,000 UNITS tablet
1,000 units PO DAILY
montelukast [Singulair] 10 mg Tablet
10 mg PO QPM
cyanocobalamin (vitamin B-12) [Vitamin B-12] 1,000 mcg Tablet
1,000 mcg PO Q48H
nebivolol 5 mg Tablet
5 mg PO HS
Nubia Silver Men [id number] mcg Tablet
1 tab PO DAILY
dorzolamide (PF) 2 % Drops
1 drp BOTH EYES TID
latanoprost (PF) 0.005 % Dropperette
1 drp BOTH EYES HS
ezetimibe 10 mg Tablet
10 mg PO QPM
magnesium 425 MG tablet
425 mg PO DAILY
ascorbic acid (vitamin C) [Vitamin C] 1,000 mg Tablet
1,000 mg PO DAILY
Beulah Turmeric
1 dose PO DAILY
apple cider vinegar
1 tsp PO QPM
celecoxib [Celebrex] 200 mg capsule
200 mg PO DAILY Qty: 14 0RF
Rx Instructions:
Take with food post-surgery.
DO NOT take within 2 hours of Aspirin.
ondansetron HCl 4 mg tablet
4 mg PO Q6H PRN (Reason: nausea and vomiting) Qty: 30 0RF
famotidine [Pepcid] 20 mg tablet
20 mg PO HS Qty: 30 0RF
Rx Instructions:
Take nightly while on post-surgical pain meds to reduce GI upset.
cefadroxil 500 mg capsule
500 mg PO BID Qty: 14 0RF
Rx Instructions:
Start night of discharge and continue twice a day until finished.
Take with probiotic.
aspirin 325 mg Tablet
325 mg PO DAILY Qty: 30 0RF
Rx Instructions:
Take daily x4 weeks for blood clot prevention; then resume Aspirin 81 mg daily.
docusate sodium 100 mg Capsule
100 mg PO BID Qty: 30 0RF
lidocaine 4 % Adhesive Patch,Medicated
2 patch topical DAILY Qty: 30 0RF
Rx Instructions:
Over the counter. 12 hours on, 12 hours off.
Apply to sides of right knee/thigh.
sennosides [Laurence-rosalba] 8.6 mg Tablet
17.2 mg PO BID Qty: 30 0RF
Saccharomyces boulardii [Florastor] 250 mg capsule
250 mg PO BID Qty: 14 0RF
Rx Instructions:
Over the counter. Take while on antibiotic.
If unavailable, choose a different probiotic.
tramadol 50 mg tablet
50 - 100 mg PO Q6H MDD 6 PRN (Reason: moderate-severe pain) Qty: 30 0RF
Rx Instructions:
1 tab moderate, 2 if severe
Dx TKA
acetaminophen [Tylenol Arthritis Pain] 650 mg tablet extended release
1,300 mg PO Q8H Qty: 60 0RF
Rx Instructions:
Do NOT exceed >4000 mg daily.
losartan 50 MG tablet
50 mg PO DAILY Qty: 1 0RF
Rx Instructions:
HOLD IF systolic blood pressure <130 while on post-surgical narcotics.
doxazosin 1 MG tablet
1 mg PO HS Qty: 1 0RF
Rx Instructions:
HOLD IF systolic blood pressure </= 100
polyethylene glycol 3350 [Miralax] 17 gram powder in packet
17 g PO DAILY PRN (Reason: Constipation) Qty: 14 0RF
Rx Instructions:
Add to bowel regimen of Colace and Senna should no bowel movement occur within 48-72 hours post-surgery.
Activity Restrictions/Additional Instructions:
Please follow up with Dr. Baker for additional instruction.
Interventions
Interventions:
*Risk Screen - Suicide Last Done: 09/07/25 13:12
*General Assessment Last Done: 09/07/25 13:12
*Neglect/Abuse Screening Last Done: 09/07/25 13:12
ED-Skin Assessment Last Done: 09/07/25 13:25
Discharge Date and Time
Print Language: WOLOF
[2025-09-07 14:39] LABS: Urine Character Clear (Clear)
[2025-09-07 14:53] LABS: Urine Red Blood Cell 0-2 /HPF (0-2); Urine Squamous Cell 0-2 /LPF (Few)
== END 2025-09-07 14:04 | disposition home or self-care (01) ==
LOC: EMR 13:10
PROVIDERS: EMERGENCY PHYSICIAN Emergency Medicine; FAMILY PHYSICIAN Family Medicine
DX: T81.30XA Disruption of wound, unspecified, initial encounter (principal); Y92.9 Unspecified place or not applicable; Z96.659 Presence of unspecified artificial knee joint; I10 Essential (primary) hypertension; E11.9 Type 2 diabetes mellitus without complications; G47.33 Obstructive sleep apnea (adult) (pediatric); Z82.49 Family history of ischemic heart disease and other diseases of the circulatory system; Z86.73 Personal history of transient ischemic attack (TIA), and cerebral infarction without residual deficits; Z90.79 Acquired absence of other genital organ(s)
CPT/HCPCS: 99282; 81003; 81015; 87086

== ENCOUNTER → 2025-10-26 09:53 | Outpatient (REF) | payer MEDICARE, OTHER, SELFPAY ==
[2025-10-26 10:54] LABS: Hematocrit 39.0 % (39.0-52.0); Hemoglobin 13.1 g/dL (13.0-18.0); Mean Corp Hgb Conc. 33.6 g/dL (33.0-37.0); Mean Corpuscular Volume 94.2 fL (80.0-94.0); Nucleated Red Blood Cells % 0 % (-); Platelet Count 132 10^3/uL (130-400); Red Cell Dist. Width 15.0 % (11.5-14.5)
[2025-10-26 11:14] LABS: ALT (SGPT) 17 U/L (0-50); AST (SGOT) 25 U/L (17-59); Albumin 4.7 g/dl (3.5-5.0); Alkaline Phosphatase 67 U/L (38-126); Blood Urea Nitrogen 10 mg/dl (9-20); Calcium 9.2 mg/dl (8.4-10.2); Carbon Dioxide 27 mmol/L (22-30); Chloride 101 mmol/L (98-107); Glucose 103 mg/dl (70-99); Glycohemoglobin (HgbA1c) 4.5 % (4.0-5.9); HDL Cholesterol 50 mg/dl; LDL Cholesterol, Calculated 101 mg/dl; Potassium 4.3 mmol/L (3.5-5.1); Sodium 136 mmol/L (135-145); Total Protein 7.6 g/dl (6.3-8.2); Very Low Density Lipoprotein 20 mg/dl (0-30); eGFR > 60.00
== END ==
LOC: REG 09:53
PROVIDERS: ATTENDING PHYSICIAN Family Medicine
DX: I10 Essential (primary) hypertension (principal); E78.00 Pure hypercholesterolemia, unspecified; Z86.73 Personal history of transient ischemic attack (TIA), and cerebral infarction without residual deficits; E74.39 Other disorders of intestinal carbohydrate absorption; R79.9 Abnormal finding of blood chemistry, unspecified; R73.9 Hyperglycemia, unspecified
CPT/HCPCS: 36415; 80053; 80061; 83036; 85025